=== PATIENT | male | born 1975 | race African-American/Black ===

== ENCOUNTER 2020-10-30 17:37 | Emergency (ER) | payer OTHER ==
[~2020-10-30] VITALS: Ht 182.9 cm; Wt 90.7 kg
[2020-10-30 17:40] VITALS: BP 143/62
[2020-10-30] MEDS ORDERED: IBU600 MG PO (18:33)
== END 2020-10-30 18:51 | disposition home or self-care (01) ==
LOC: ER 17:37
DX: M25.511 Pain in right shoulder (principal); M25.512 Pain in left shoulder